=== PATIENT | male | born 1950 | race Two or more races ===

== ENCOUNTER 2017-09-03 03:28 | Emergency (ER) | payer SELFPAY ==
[~2017-09-03] VITALS: Ht 165.1 cm; Wt 67.6 kg
--- NOTE | 2017-09-03 03:35 | NUR ---
TO BED 15 BIB PARAMEDICS C/O ALTERED, ETOH. PT AAOX4 NO ACUTE DISTRESS NOTED, RESP EVEN AND UNLABORED. PLACE PT ON CARDIAC MONITORING, CONTINUOUS POX. NOTED PT AMBULATROY FROM EMS GURNEY TO ER [facility] WITH UNSTEADY GAIT NOTED. CALL LIGHT WITHIN REACH. ER MD AT BEDSIDE TO EVAL PT.
--- NOTE | 2017-09-03 05:57 | NUR ---
PT ASLEEP, NO ACUTE DISTRESS NOTED, RESP EVEN AND UNLABORED. CALL LIGHT WIHTIN REACH. WILL CONTINUE TO MONITOR PT CLOSELY.
--- NOTE | 2017-09-03 06:14 | NUR ---
Patient discharged to home in stable condition. Written and verbal after care instructions given. Patient verbalizes understanding of instruction. pt aaox4 no acute distress noted, resp even and unlabored. pt denies being homeless. pt ambulatory with steady gait noted. advice pt not to drive or operate any machinery due to alcohol intoxication.
[2017-09-03 06:15] VITALS: BP 133/61
== END 2017-09-03 06:16 | disposition home or self-care (01) ==
LOC: ER 03:32
DX: F10.129 Alcohol abuse with intoxication, unspecified (principal)
CPT/HCPCS: A4606; Z7610